=== PATIENT | male | born 1960 | race African-American/Black ===

== ENCOUNTER 2016-10-12 05:43 | Inpatient (IN) | payer OTHER ==
[2016-10-12] VITALS (10 sets, daily range): BP systolic 117–181; BP diastolic 55–96
[~2016-10-12] VITALS: Ht 177.8 cm; Wt 117.8 kg
[~2016-10-12 05:43] MED LIST: AVALIDE 150/1 TABLET; AVALIDE 150/1 TABLET PO; CATAPRES0.2 MG PO; GEMFIBROZIL600 MG PO; IRON325 M1 PO; LIPITOR80 MG PO; LO-DOSE ASPIRIN81 M2 PO; MOBIC7.5 MG PO; NEURONTIN400 MG PO; NORVASC10 MG PO; ONDANSETRON HCL4 M1 PO; TRAMADOL HCL50 MG PO
[2016-10-13 04:03] VITALS: BP 173/89
[2016-10-13 04:06] VITALS: BP 173/89
[2016-10-13 06:16] LABS: EOSINOPHIL (%) 1.4 % (0-5); EOSINOPHIL COUNT 0.1 K/uL (0-0.3); HEMATOCRIT 40.2 % (38.0-50.0); IMMATURE GRANULOCYTE (%) 0.3 % (0.0-0.7); INSTRUMENT ABS NEUTROPHIL CT 5.7 K/uL; LYMPHOCYTE COUNT 1.2 K/uL (1.0-2.8); MCH 25.7 PG (29.0-34.0); MCHC 32.6 G/DL (30.0-36.0); MCV 78.8 FL (86-99); MEAN PLAT.VOLUME 10.5 uM^3 (9.0-12.4); MONOCYTE COUNT 0.7 K/uL (0-0.8); NEUTROPHIL (%) 73.6 % (45-76); NEUTROPHIL COUNT 5.7 K/uL (1.8-6.4); PLATELET COUNT 282 K/uL (156-360); RBC DIS.WIDTH-CV 14.1 % (11.8-14.6); RBC DIS.WIDTH-SD 40.4 % (39-53)
[2016-10-13 06:18] LABS: WHITE BLOOD COUNT 7.8 K/uL (4.1-10.2)
[2016-10-13 06:54] LABS: ANION GAP 10 MEQ/L (2-14); CHLORIDE 102 MEQ/L (99-109); GFR ESTIMATE (CALCULATED) > 59 mL/min/; GLUCOSE 96 mg/dL (70-99); POTASSIUM 3.6 MEQ/L (3.7-5.4); SAMPLE HEMOLYSIS CHECK 0; SAMPLE ICTERIC CHECK 0; SAMPLE LIPEMIA CHECK 0; SODIUM 140 MEQ/L (136-147); UREA NITROGEN (BUN) 13 mg/dL (9-23)
[2016-10-13 08:00] VITALS: BP 146/74
[2016-10-13] MEDS ORDERED: OXYCODONE HCL5 MG PO (10:39)
[2016-10-13] MEDS ORDERED: XARELTO10 MG PO (10:39)
[2016-10-13 11:34] VITALS: BP 141/72
== END 2016-10-13 13:25 | DRG 470 ==
LOC: 2SOUTH 05:43 → 3WEST 10:12 → 2SOUTH 11:33 → 3WEST 10-13 13:25
PROVIDERS: Orthopaedic Surgery; Physician Assistant
PROC: 0SRC0J9 Replacement of Right Knee Joint with Synthetic Substitute, Cemented, Open Approach (ICD-10-PCS; principal; 2016-10-12)
DX: M17.11 Unilateral primary osteoarthritis, right knee (principal); I10 Essential (primary) hypertension; G47.33 Obstructive sleep apnea (adult) (pediatric); Z95.0 Presence of cardiac pacemaker; Z79.82 Long term (current) use of aspirin; Z91.14 Patient's other noncompliance with medication regimen
CPT/HCPCS: 80048; 85025; 85730; C1713; J0131; J0690; J1885; J2250; J2405; J7050; J7120; L1820; S0020